=== PATIENT | male | born 1990 | race Caucasian/White ===

== ENCOUNTER 2022-08-06 22:11 | Emergency (ER) | payer BC, OTHER, SELFPAY ==
[~2022-08-06] VITALS: Ht 170.2 cm; Wt 67.0 kg
[2022-08-06] MEDS ORDERED: FURO40TA2 PO (22:45)
[2022-08-06] MEDS ORDERED: BUSP15TA47 PO (22:45)
[2022-08-06] MEDS ORDERED: CARV25TA PO (22:45)
[2022-08-06] MEDS ORDERED: ISOS1TAB36 PO (22:45)
[2022-08-06] MEDS ORDERED: ZOLO100T PO (22:45)
[2022-08-06] MEDS ORDERED: SODI650T PO (22:45)
[2022-08-06] MEDS ORDERED: HYDR100T PO (22:45)
[2022-08-06] MEDS ORDERED: ERGO500029 (22:45)
[2022-08-06] MEDS ORDERED: BASA100I (22:45)
[2022-08-06] MEDS ORDERED: hydrALAZINE 20MG/ML 1ML VIAL (J0360 PER 20MG) IV ONE (22:50)
[2022-08-06 23:11] VITALS: BP 215/117
[2022-08-06 23:15] LABS: BASO # 0.1 10^3/uL (0.0-0.2); BASO % 1.1 % (0.0-1.0); EOS # 0.3 10^3/uL (0.0-0.5); EOS % 3.3 % (0.0-3.0); HEMATOCRIT 26.8 % (42.0-52.0); HEMOGLOBIN 9.2 g/dl (13.5-17.5); LYMPH # 1.7 10^3/uL (1.5-5.0); LYMPH % 20.4 % (24.0-44.0); MEAN CORPUSCULAR HEMOGLOBIN 30.7 pg (27.0-33.0); MEAN CORPUSCULAR HGB CONC 34.3 g/dl (32.0-36.5); MEAN CORPUSCULAR VOLUME 89.3 fl (80.0-96.0); MONO # 0.8 10^3/uL (0.0-0.8); MONO % 10.2 % (2.0-8.0); NEUTROPHILS # 5.2 10^3/uL (1.5-8.5); NEUTROPHILS % 64.4 % (36.0-66.0); PLATELET COUNT, AUTOMATED 283 10^3/uL (150-450); WHITE BLOOD COUNT 8.1 10^3/uL (4.0-10.0)
[2022-08-06 23:33] LABS: CK-MB VALUE MASS 7.2 NG/ML (<3.6); MB/CK RELATIVE INDEX 4.31 (< OR =4)
[2022-08-06 23:38] LABS: CALCIUM LEVEL 8.8 MG/DL (8.5-10.1); CREATININE FOR GFR 4.91 MG/DL (0.70-1.30); GLOMERULAR FILTRATION RATE 14.8 (>60); POTASSIUM SERUM 4.6 MEQ/L (3.5-5.1)
[2022-08-06] MEDS ORDERED: HumuLIN R (REGULAR) INSULIN (NovoLIN R) **100U/ML** PER UNIT IV ONE (23:45)
[2022-08-07 00:05] LABS: VENOUS BASE EXCESS -2.6 (-2.0-2.0); VENOUS HCO3 23.3 MEQ/L (23.0-27.0); VENOUS PARTIAL PRESSURE CO2 45.5 mmHg (38.0-50.0); VENOUS PARTIAL PRESSURE O2 56.7 mmHg (30.0-50.0); VENOUS PH 7.328 UNITS (7.330-7.430); VENOUS STANDARD HCO3 22.2 MEQ/L; VENOUS TOTAL CO2 24.7 MEQ/L (24.0-28.0)
[2022-08-07 00:32] LABS: CK-MB VALUE MASS 6.3 NG/ML (<3.6); MB/CK RELATIVE INDEX 4.17 (< OR =4)
[2022-08-07 01:30] VITALS: BP 167/86
== END 2022-08-07 01:34 | disposition home or self-care (01) ==
LOC: M ED 22:11
DX: I13.0 Hypertensive heart and chronic kidney disease with heart failure and stage 1 through stage 4 chronic kidney disease, or unspecified chronic kidney disease (principal); I50.9 Heart failure, unspecified; E11.65 Type 2 diabetes mellitus with hyperglycemia; E11.22 Type 2 diabetes mellitus with diabetic chronic kidney disease; F32.A Depression, unspecified; Z79.4 Long term (current) use of insulin; Z79.899 Other long term (current) drug therapy; Z88.8 Allergy status to other drugs, medicaments and biological substances; Z98.890 Other specified postprocedural states
CPT/HCPCS: 36415; 70450; 71045; 80048; 82010; 82550; 82553; 82803; 83880; 85025; 85379; 93005; 96374; 96375; 99284; J0360; J1815

== ENCOUNTER → 2023-02-12 | Outpatient (CLI) | payer OTHER ==
[~2023-02-12] MED LIST: BASA100I; BUSP15TA47 PO; CARV25TA PO; ERGO500029; FURO40TA2 PO; HYDR100T PO; ISOS1TAB36 PO; SODI650T PO; ZOLO100T PO
== END ==
LOC: M RAD 12:46
PROVIDERS: ATTEND Internal Medicine Nephrology
DX: N18.6 End stage renal disease (principal)

== ENCOUNTER → 2023-02-19 | Outpatient (REF) | payer OTHER ==
[2023-02-19 18:05] LABS: PERCENT SATURATION 20.6 % (19.7-50.0)
== END ==
LOC: M LAB REF 17:26
PROVIDERS: ATTEND Internal Medicine Nephrology
DX: D50.9 Iron deficiency anemia, unspecified (principal)

== ENCOUNTER → 2023-03-19 | Outpatient (CLI) | payer OTHER ==
[~2023-03-19] VITALS: Ht 170.2 cm; Wt 70.0 kg
[~2023-03-19] MED LIST changes: +ALBUTEROL SULFATE 2.5MG/0.5ML INH NEB SOLN INH PRN; +EPINEPHrine INJ 1 MG/ML 1ML AMP IM PRN; +IRON SUCROSE 400 MG in NS 250 ML OVER 2.5 HRS IV ONE; +NS 1,000 ML IV SCH; +diphenhydrAMINE 50MG/ML VIAL IV PRN; +methylPREDNISolone 125MG 2ML VIAL IV PRN
[2023-03-19 10:10] VITALS: BP 147/95; O2SAT 96
[2023-03-19 13:10] VITALS: BP 119/59; O2SAT 97
== END ==
LOC: M INFU 10:10
PROVIDERS: ATTEND Internal Medicine Nephrology
DX: D50.9 Iron deficiency anemia, unspecified (principal); Z88.8 Allergy status to other drugs, medicaments and biological substances
CPT/HCPCS: 96365; 96366; J1756

== ENCOUNTER → 2023-03-25 | Outpatient (REF) | payer OTHER ==
[~2023-03-25] MED LIST changes: -ALBUTEROL SULFATE 2.5MG/0.5ML INH NEB SOLN INH PRN; -EPINEPHrine INJ 1 MG/ML 1ML AMP IM PRN; -IRON SUCROSE 400 MG in NS 250 ML OVER 2.5 HRS IV ONE; -NS 1,000 ML IV SCH; -diphenhydrAMINE 50MG/ML VIAL IV PRN; -methylPREDNISolone 125MG 2ML VIAL IV PRN
[2023-03-25 20:15] LABS: PERCENT SATURATION 18.3 % (19.7-50.0)
== END ==
LOC: M LAB REF 17:47
PROVIDERS: ATTEND Internal Medicine Nephrology
DX: D50.9 Iron deficiency anemia, unspecified (principal)

== ENCOUNTER 2023-04-08 07:34 | Day surgery (SDC) | payer OTHER ==
[~2023-04-08] VITALS: Ht 170.2 cm; Wt 63.6 kg
[~2023-04-08 07:34] MED LIST changes: +ATOR1TAB21 PO; +CARV12.5 PO; +DEXC1MIS3; +INSU100I24 SQ; +LEVO25TA5 PO; +ceFAZolin SOD 2 GM in IV 1 EA IV ONE
[2023-04-08] MEDS ORDERED: LR 1,000 ML IV SCH (08:05)
[2023-04-08 08:08] LABS: MEAN CORPUSCULAR HEMOGLOBIN 30.2 pg (27.0-33.0); MEAN CORPUSCULAR HGB CONC 33.3 g/dl (32.0-36.5); MEAN CORPUSCULAR VOLUME 90.6 fl (80.0-96.0); PLATELET COUNT, AUTOMATED 258 10^3/uL (150-450); RED BLOOD COUNT 2.65 10^6/uL (4.30-6.10); WHITE BLOOD COUNT 7.8 10^3/uL (4.0-10.0)
[2023-04-08] MEDS ORDERED: iron (08:14)
[2023-04-08 08:25] LABS: INR 0.88; PROTHROMBIN TIME 12.1 SECONDS (12.5-14.5)
[2023-04-08 08:26] LABS: PARTIAL THROMBOPLASTIN TIME 26.9 SECONDS (24.8-34.2)
[2023-04-08 08:40] LABS: CALCIUM LEVEL 8.3 MG/DL (8.5-10.1); CREATININE FOR GFR 5.26 MG/DL (0.70-1.30); GLOMERULAR FILTRATION RATE 13.7 (>60); POTASSIUM SERUM 4.5 MMOL/L (3.5-5.1)
[2023-04-08] MEDS ORDERED: fentaNYL 100 MCG/2 ML INJECTION As Ordered ONE (08:51)
[2023-04-08] MEDS ORDERED: LIDOCAINE 2% 100MG/5ML SDV (FOR ANES.) As Ordered ONE (08:51)
[2023-04-08] MEDS ORDERED: MIDAZOLAM INJ 2MG/2ML VIAL As Ordered ONE (08:51)
[2023-04-08] MEDS ORDERED: propofoL 200 MG/20 ML VIAL As Ordered ONE (08:51)
[2023-04-08] MEDS ORDERED: ONDANSETRON 4MG 2ML VIAL As Ordered ONE (08:52)
[2023-04-08] MEDS ORDERED: HEPARIN SOD (PORCINE) 5000UNITS/ML 1ML VIAL/SYRINGE As Ordered ONE ×2 (08:54→08:58)
[2023-04-08] MEDS ORDERED: PAPAVERINE HCL 60MG 2ML VIAL (30MG/ML) As Ordered ONE (08:54)
[2023-04-08] MEDS ORDERED: LIDOCAINE 1% SDV 30ML VIAL As Ordered ONE (08:54)
[2023-04-08] MEDS ORDERED: CISATRACURIUM 2MG/ML 5ML VIAL As Ordered ONE (09:07)
[2023-04-08] MEDS ORDERED: INSULIN LISPRO (NovoLOG) PER UNIT As Ordered ONE (09:30)
[2023-04-08] MEDS ORDERED: ePHEDrine SULFATE 25 MG/5 ML(5MG/ML) SYRINGE As Ordered ONE (09:57)
[2023-04-08] MEDS ORDERED: GLYCOPYRROLATE INJ 0.2 MG/ML 2 ML VIAL As Ordered ONE ×2 (10:41→10:47)
[2023-04-08] MEDS ORDERED: NEOSTIGMINE 10MG 10ML VIAL As Ordered ONE (10:41)
[2023-04-08] MEDS ORDERED: ACETAMINOPHEN 1000MG 100ML IV BAG As Ordered ONE (10:42)
[2023-04-08 12:44] VITALS: BP 183/85; TEMP 97.5; O2SAT 100
== END 2023-04-08 13:10 | disposition home or self-care (01) ==
LOC: M SDC 07:34
PROVIDERS: ATTEND Surgery Vascular Surgery
DX: N18.5 Chronic kidney disease, stage 5 (principal); E10.21 Type 1 diabetes mellitus with diabetic nephropathy; E10.319 Type 1 diabetes mellitus with unspecified diabetic retinopathy without macular edema; I12.9 Hypertensive chronic kidney disease with stage 1 through stage 4 chronic kidney disease, or unspecified chronic kidney disease; E78.00 Pure hypercholesterolemia, unspecified; E03.9 Hypothyroidism, unspecified; D50.9 Iron deficiency anemia, unspecified; F41.9 Anxiety disorder, unspecified; F32.A Depression, unspecified; Z86.73 Personal history of transient ischemic attack (TIA), and cerebral infarction without residual deficits; Z88.8 Allergy status to other drugs, medicaments and biological substances; Z79.899 Other long term (current) drug therapy
CPT/HCPCS: 36415; 36821; 80048; 85027; 85610; 85730; J0131; J0690; J1100; J2250; J2405; J2440; J2710; J3010

== ENCOUNTER → 2023-05-28 | Outpatient (REF) | payer OTHER ==
[~2023-05-28] MED LIST changes: -ceFAZolin SOD 2 GM in IV 1 EA IV ONE; +iron
[2023-05-28 18:44] LABS: HEPATITIS B SURFACE ANTIBODY POSITIVE (POSITIVE)
[2023-05-28 19:16] LABS: HEPATITIS B CORE ANTIBODY IGM NEGATIVE (NEGATIVE); HEPATITIS C VIRUS ABY INDEX 0.15 INDEX (<0.8)
== END ==
LOC: M LAB REF 17:22
PROVIDERS: ATTEND Internal Medicine Nephrology
DX: N18.6 End stage renal disease (principal)

== ENCOUNTER 2024-03-07 23:05 | Inpatient (IN) | payer OTHER ==
[~2024-03-07] VITALS: Ht 170.2 cm; Wt 70.2 kg
[~2024-03-07 23:05] MED LIST changes: -ERGO500029; +ERGO500029 PO
[2024-03-07 23:43] LABS: VENOUS BASE EXCESS -1.7 (-2.0-2.0); VENOUS HCO3 23.6 MMOL/L (23.0-27.0); VENOUS O2 SATURATION 93.4 % (60.0-80.0); VENOUS PARTIAL PRESSURE CO2 42.3 mmHg (38.0-50.0); VENOUS PARTIAL PRESSURE O2 69.5 mmHg (30.0-50.0); VENOUS PH 7.365 UNITS (7.330-7.430); VENOUS TOTAL CO2 24.9 MMOL/L (24.0-28.0)
[2024-03-07] MEDS: hydrALAZINE 20MG/ML 1ML VIAL IV ONE (23:55)
[2024-03-08] VITALS (21 sets, daily range): BP systolic 112–200; BP diastolic 62–96; TEMP 97.3–98.5; O2SAT 89–100
[2024-03-08] MEDS: busPIRone 5 MG TAB PO ONE (00:36)
[2024-03-08] MEDS: CARVedilol 12.5 MG TAB PO ONE (00:36)
[2024-03-08] MEDS: GABAPENTIN 300 MG CAP PO ONE (00:37)
[2024-03-08 00:50] LABS: BASO # 0.1 10^3/uL (0.0-0.2); BASO % 0.7 % (0.0-1.0); EOS # 0.4 10^3/uL (0.0-0.5); EOS % 3.4 % (0.0-3.0); HEMATOCRIT 31.8 % (42.0-52.0); HEMOGLOBIN 10.9 g/dl (13.5-17.5); LYMPH # 1.5 10^3/uL (1.5-5.0); LYMPH % 11.6 % (24.0-44.0); MEAN CORPUSCULAR HEMOGLOBIN 32.4 pg (27.0-33.0); MEAN CORPUSCULAR HGB CONC 34.3 g/dl (32.0-36.5); MEAN CORPUSCULAR VOLUME 94.6 fl (80.0-96.0); MONO # 0.8 10^3/uL (0.0-0.8); MONO % 6.2 % (2.0-8.0); NEUTROPHILS # 9.7 10^3/uL (1.5-8.5); NEUTROPHILS % 77.8 % (36.0-66.0); PLATELET COUNT, AUTOMATED 275 10^3/uL (150-450); RED BLOOD COUNT 3.36 10^6/uL (4.30-6.10); WHITE BLOOD COUNT 12.5 10^3/uL (4.0-10.0)
[2024-03-08 01:33] LABS: CK-MB VALUE MASS 11.3 NG/ML (<3.6)
[2024-03-08 01:35] LABS: ALBUMIN 3.5 G/DL (3.2-5.2); ALKALINE PHOSPHATASE 116 U/L (46-116); ALT/SGPT 25 U/L (7.0-40); AST/SGOT 14 U/L (<34); BILIRUBIN,DIRECT < 0.1 MG/DL (<0.4); BILIRUBIN,TOTAL 0.2 MG/DL (0.3-1.2); BLOOD UREA NITROGEN 60 MG/DL (9-23); CALCIUM LEVEL 8.6 MG/DL (8.5-10.1); CARBON DIOXIDE LEVEL 24 MMOL/L (20-31); CHLORIDE LEVEL 98 MMOL/L (98-107); CREATININE FOR GFR 5.91 MG/DL (0.70-1.30); GLOMERULAR FILTRATION RATE 11.9 (>60); GLUCOSE, FASTING 284 MG/DL (60-100); POTASSIUM SERUM 4.9 MMOL/L (3.5-5.1); SODIUM LEVEL 134 MMOL/L (136-145); TOTAL PROTEIN 7.2 G/DL (5.7-8.2)
[2024-03-08 01:39] LABS: CPK CREATINE PHOSPHOKINASE 194 U/L (46-171); MB/CK RELATIVE INDEX 5.82 (< OR =4)
[2024-03-08 03:04] LABS: CK-MB VALUE MASS 9.6 NG/ML (<3.6)
[2024-03-08 03:10] LABS: MB/CK RELATIVE INDEX 6.23 (< OR =4)
[2024-03-08] MEDS: FUROSEMIDE 100MG/10ML VIAL IV ONE (03:40)
[2024-03-08] MEDS ORDERED: GLUCAGON INJ 1MG VIAL SC PRN (04:20)
[2024-03-08] MEDS ORDERED: DEXTROSE 50% 50ML SYRINGE IV PRN (04:20)
[2024-03-08] MEDS ORDERED: GLUCOSE 4 GM CHEW PO PRN (04:20)
[2024-03-08] MEDS: LEVEMIR (INSULIN DETEMIR) 1 UNITS/0.01ML SC ONE (04:53)
[2024-03-08] MEDS: ASPIRIN 81MG CHEW TABLET PO ONE (04:53)
[2024-03-08] MEDS: INSULIN LISPRO (NovoLOG) PER UNIT SC STA (04:53)
[2024-03-08] MEDS: hydrALAZINE 20MG/ML 1ML VIAL IV PRN (05:25)
[2024-03-08] MEDS ORDERED: IRON65TA2 PO (06:08)
[2024-03-08] MEDS ORDERED: FURO80TA2 PO (06:08)
[2024-03-08] MEDS ORDERED: TOUJ300I2 SC (06:08)
[2024-03-08] MEDS ORDERED: LEVO200T4 PO (06:08)
[2024-03-08] MEDS ORDERED: LEVO75TA4 PO (06:08)
[2024-03-08] MEDS ORDERED: CARV25TA PO (06:08)
[2024-03-08] MEDS ORDERED: AMIT25TA19 PO (06:10)
[2024-03-08] MEDS ORDERED: HOME MED LIST COMPLETE! XX SCH (06:15)
[2024-03-08] MEDS: INSULIN LISPRO (NovoLOG) PER UNIT SC SCH ×2 (08:09→20:46)
[2024-03-08] MEDS: **hydrALAZINE** 50 MG TAB PO SCH (08:10)
[2024-03-08] MEDS: ATORVASTATIN 20 MG TAB PO SCH (08:10)
[2024-03-08] MEDS: ASPIRIN 81MG CHEW TABLET PO SCH (08:10)
[2024-03-08] MEDS: CARVedilol 12.5 MG TAB PO SCH (08:10)
[2024-03-08] MEDS ORDERED: LIDOCAINE 1% SDV 5ML VIAL SC PRN (08:45)
[2024-03-08] MEDS ORDERED: HEPARIN 1,000UNITS/ML 10ML VIAL (FOR RADIOLOGY & DIALYSIS ONLY) IV PRN (08:45)
[2024-03-08] MEDS ORDERED: SODIUM CHLORIDE 0.9% 1000ML IV PRN (08:45)
[2024-03-08] MEDS: HEPARIN 1,000UNITS/ML 10ML VIAL (FOR RADIOLOGY & DIALYSIS ONLY) XX SCH (10:49)
[2024-03-08] MEDS: CALCITRIOL 0.25 MCG CAP (S0169) PO SCH (13:05)
[2024-03-08] MEDS: HEPARIN SOD (PORCINE) 5000UNITS/ML 1ML VIAL/SYRINGE SC SCH (14:07)
[2024-03-08] MEDS ORDERED: ISOVUE-370 76% 100ML VIAL As Ordered ONE (15:18)
[2024-03-08] MEDS: LEVEMIR (INSULIN DETEMIR) 1 UNITS/0.01ML SC SCH (20:56)
[2024-03-09] VITALS (29 sets, daily range): BP systolic 122–165; BP diastolic 64–86; TEMP 96.8–98.7; O2SAT 91–98
[2024-03-09] MEDS: cefTRIAXone SOD 1 GM in D5W MINI-BAG PLUS 50 ML IV SCH (01:06)
[2024-03-09] MEDS: VANCOMYCIN HCL 1,000 MG, VIAL MATE ADAPTER 1 EACH in D5W 250 ML IV ONE (02:33)
[2024-03-09 05:33] LABS: HEMATOCRIT 26.7 % (42.0-52.0); MEAN CORPUSCULAR HEMOGLOBIN 32.4 pg (27.0-33.0); MEAN CORPUSCULAR HGB CONC 33.7 g/dl (32.0-36.5); PLATELET COUNT, AUTOMATED 231 10^3/uL (150-450); RED BLOOD COUNT 2.78 10^6/uL (4.30-6.10); WHITE BLOOD COUNT 7.9 10^3/uL (4.0-10.0)
[2024-03-09 05:50] LABS: CALCIUM LEVEL 8.6 MG/DL (8.5-10.1); CREATININE FOR GFR 6.12 MG/DL (0.70-1.30); GLOMERULAR FILTRATION RATE 11.4 (>60); POTASSIUM SERUM 4.3 MMOL/L (3.5-5.1)
[2024-03-09] MEDS ORDERED: HEPARIN 1,000UNITS/ML 10ML VIAL (FOR RADIOLOGY & DIALYSIS ONLY) IV PRN (06:00)
[2024-03-09] MEDS ORDERED: SODIUM CHLORIDE 0.9% 1000ML IV PRN (06:00)
[2024-03-09] MEDS ORDERED: LIDOCAINE 1% SDV 5ML VIAL SC PRN (06:00)
[2024-03-09] MEDS ORDERED: VANCOMYCIN HCL 1,000 MG, VIAL MATE ADAPTER 1 EACH in D5W 250 ML IV SCH (06:00)
[2024-03-09 06:15] LABS: MAGNESIUM LEVEL 2.3 MG/DL (1.8-2.4)
[2024-03-09] MEDS: HEPARIN 1,000UNITS/ML 10ML VIAL (FOR RADIOLOGY & DIALYSIS ONLY) XX SCH (11:17)
[2024-03-09 15:31] LABS: PROCALCITONIN 0.3 ng/ml
[2024-03-09] MEDS: CLOTRIMAZOLE 1% TOPICAL CREAM 30GM TOP SCH (21:34)
[2024-03-10] VITALS (11 sets, daily range): BP systolic 127–198; BP diastolic 63–98; TEMP 97–97.3; O2SAT 94–97
[2024-03-10] MEDS ORDERED: HEPARIN 1,000UNITS/ML 10ML VIAL (FOR RADIOLOGY & DIALYSIS ONLY) IV PRN (06:00)
[2024-03-10] MEDS ORDERED: SODIUM CHLORIDE 0.9% 1000ML IV PRN (06:00)
[2024-03-10] MEDS ORDERED: LIDOCAINE 1% SDV 5ML VIAL SC PRN (06:00)
[2024-03-10 06:39] LABS: BASO # 0.1 10^3/uL (0.0-0.2); BASO % 0.7 % (0.0-1.0); EOS # 0.3 10^3/uL (0.0-0.5); EOS % 3.9 % (0.0-3.0); HEMATOCRIT 28.2 % (42.0-52.0); HEMOGLOBIN 9.2 g/dl (13.5-17.5); LYMPH # 1.4 10^3/uL (1.5-5.0); LYMPH % 17.1 % (24.0-44.0); MEAN CORPUSCULAR HEMOGLOBIN 32.4 pg (27.0-33.0); MEAN CORPUSCULAR HGB CONC 32.6 g/dl (32.0-36.5); MEAN CORPUSCULAR VOLUME 99.3 fl (80.0-96.0); MONO # 0.9 10^3/uL (0.0-0.8); MONO % 10.4 % (2.0-8.0); NEUTROPHILS # 5.5 10^3/uL (1.5-8.5); NEUTROPHILS % 67.7 % (36.0-66.0); PLATELET COUNT, AUTOMATED 233 10^3/uL (150-450); RED BLOOD COUNT 2.84 10^6/uL (4.30-6.10); WHITE BLOOD COUNT 8.2 10^3/uL (4.0-10.0)
[2024-03-10 07:39] LABS: CREATININE FOR GFR 4.54 MG/DL (0.70-1.30); GLOMERULAR FILTRATION RATE 16.1 (>60); MAGNESIUM LEVEL 2.2 MG/DL (1.8-2.4); POTASSIUM SERUM 4.4 MMOL/L (3.5-5.1)
[2024-03-10] MEDS: LEVEMIR (INSULIN DETEMIR) 1 UNITS/0.01ML SC ONE (07:59)
[2024-03-10] MEDS: HEPARIN 1,000UNITS/ML 10ML VIAL (FOR RADIOLOGY & DIALYSIS ONLY) XX SCH (10:58)
== END 2024-03-10 14:36 | disposition home or self-care (01) | DRG 291 ==
LOC: M ED 23:05 → EDBD 23:05 → M ED INP 03-08 03:58 → M PCU 03-08 05:18
PROVIDERS: ADMIT Internal Medicine; ATTEND Internal Medicine
PROC: 5A1D70Z Performance of Urinary Filtration, Intermittent, Less than 6 Hours Per Day (ICD-10-PCS; 2024-03-08)
PROC: B246ZZZ Ultrasonography of Right and Left Heart (ICD-10-PCS; principal; 2024-03-09)
DX: I13.2 Hypertensive heart and chronic kidney disease with heart failure and with stage 5 chronic kidney disease, or end stage renal disease (principal); N18.6 End stage renal disease; J96.01 Acute respiratory failure with hypoxia; I50.23 Acute on chronic systolic (congestive) heart failure; I16.9 Hypertensive crisis, unspecified; E87.1 Hypo-osmolality and hyponatremia; E10.22 Type 1 diabetes mellitus with diabetic chronic kidney disease; E03.9 Hypothyroidism, unspecified; F41.9 Anxiety disorder, unspecified; D63.8 Anemia in other chronic diseases classified elsewhere; F32.A Depression, unspecified; H53.8 Other visual disturbances; E78.5 Hyperlipidemia, unspecified; Z99.2 Dependence on renal dialysis; Z79.4 Long term (current) use of insulin; Z79.890 Hormone replacement therapy; Z79.899 Other long term (current) drug therapy; Z88.8 Allergy status to other drugs, medicaments and biological substances; Z11.52 Encounter for screening for COVID-19

== ENCOUNTER → 2024-12-06 | Outpatient (CLI) | payer MEDICARE, MEDICAID ==
[~2024-12-06] MED LIST changes: +AMIT25TA19 PO; +FURO80TA2 PO; +IRON65TA2 PO; +LEVO200T4 PO; +LEVO75TA4 PO; +LIDOCAINE 1% MDV 20ML VIAL As Ordered ONE; +LORA2CON5 PO; +MIDAZOLAM INJ 2MG/2ML VIAL As Ordered ONE; +NS (Normal Saline) 0.9% 1,000 ML IV SCH; +TOUJ300I2 SC; +fentaNYL 100 MCG/2 ML INJECTION As Ordered ONE
[2024-12-06 08:58] VITALS: TEMP 97.4
[2024-12-06] MEDS: fentaNYL 100 MCG/2 ML INJECTION IV PRN (10:05)
[2024-12-06] MEDS: MIDAZOLAM INJ 2MG/2ML VIAL IV PRN (10:05)
[2024-12-06] MEDS: LIDOCAINE 1% MDV 20ML VIAL SC ONE (10:05)
[2024-12-06 10:25] VITALS: BP 156/92; O2SAT 98
== END ==
LOC: M IRPRO 08:48
PROVIDERS: ATTEND Internal Medicine Nephrology
DX: N18.6 End stage renal disease (principal)
CPT/HCPCS: 36590; 99152; J2250